=== PATIENT | male | born 1940 | race Caucasian/White ===

== ENCOUNTER 2024-06-01 01:25 | Inpatient (IN) | payer OTHER, SELFPAY ==
[2024-05-31 22:01] VITALS: BP 130/79
[2024-05-31 22:10] VITALS: BMI 44.2
[2024-05-31 22:14] VITALS: BP 105/78
--- NOTE | 2024-05-31 22:25 | ED.CVA ---
History of Present Illness
General
Chief Complaint: CVA/TIA Symptoms
Time Seen by Provider: 05/31/24 22:05
Onset of Stroke Symptoms
Onset of symptoms known: Yes
Date of onset of symptoms: 05/31/24
Date last time pt seen normal: 05/31/24
Time last time pt seen normal: 14:00
History of Present Illness
History of Present Illness:
Patient is a 84-year-old male with history of prior CVA/TIA, hypertension, hyperlipidemia, A-fib not on a blood thinner presenting to the emergency department with difficulty breathing as well as strokelike symptoms. Patient's daughter states that
his speech sounds more slurred. He was last seen normal around 2 PM. He then took a nap and when he woke up sounded like his speech was slurring. He denies any word finding difficulties. No numbness tingling. No weakness. Mild headache. No
vision changes. Daughter brought him in later this evening as he noticed he was wheezing and was breathing faster. He denies any fevers or chills. No cough congestion or runny nose. He does have history of CHF. Per patient's family member he
has been admitted for CHF exacerbation. Patient feeling member does state that at some point he was on Coumadin however he is not currently on it. His current med list does not have Xarelto alert and on either. No history of bleed that they are
aware of.
Past History
Past History
ED Past Medical History: Arrthythmia (on xarelto) and HTN
Social History
Personal:
Living: with family
Phy Exam
Physical Exam
Physical Exam:
GENERAL: Moderate respiratory distress, audible wheezing
HEENT: normocephalic, extraocular movements intact, moist oral mucosa
NECK: normal inspection
RESPIRATORY: no respiratory distress, faint crackles at the bases bilateral
CARDIOVASCULAR: regular rate and rhythm
ABDOMEN/: soft, non-distended, non-tender to palpation, no rebound or guarding
EXTREMITIES: non-tender, 2+ pitting edema bilaterally
NEUROLOGIC: alert and oriented x 3, no facial droop, slurred speech, no word finding difficulty, right upper extremity strength 5/5, left upper extremity strength 5/5, right lower extremity strength 5/5, left lower extremity strength 5/5, normal
sensation to light touch, normal caavov-iv-pkkf and qnbi-we-ukvk, gait not tested formally. NIH 1
SKIN: warm
Course
Orders/Labs/Results
Orders:
Orders
05/31/24 22:09
EKG [Electrocardiogram (*1)] Urgent
Reason for Study: Shortness of Breath
EKG- Treatment ONCE
05/31/24 22:[address] [CT Head W/o Iv Contrast] Urgent
Comment:
Reason For Exam: slurred speech
CXR2 [CR Chest - 2 Views ] Urgent
Comment:
Reason For Exam: short of breath
05/31/24 22:[address] [CT Chest Pe Study] Urgent
Comment:
Reason For Exam: short of breath
05/31/24 22:22
Ipratropium/Albuterol Sulfate [Duoneb] 3 ml INH R NOW ONE
05/31/24 22:23
Complete Blood Count/With Diff Urgent
Comprehensive Metabolic Panel Urgent
NT-proBNP Urgent
PT/INR [Prothrombin Time] Urgent
Troponin I Urgent
05/31/24 23:44
Furosemide [Lasix] 40 mg IV NOW STA
Abnormal Lab Results
05/31/24
22:23
WBC 13.3 H 10^3/uL
(4.8-10.8)
RBC 4.58 L 10^6/uL
(4.70-6.10)
Hgb 12.3 L g/dL
(13.0-18.0)
MCH 26.9 L pg
(27.0-31.0)
MCHC 31.4 L g/dL
(33.0-37.0)
RDW 17.2 H %
(11.5-14.5)
Abs Immat Gran (auto) 0.1 H 10^3/uL
(0-0.05)
Absolute Neuts (auto) 9.3 H 10^3/uL
(1.4-6.5)
Absolute Monos (auto) 0.9 H 10^3/uL
(0.1-0.6)
Immature Gran % 0.9 H %
(0-0.5)
PT 15.0 H Sec
(11.4-14.6)
Sodium 152 H mmol/L
(135-145)
Chloride 114 H mmol/L
(98-107)
BUN 22 H mg/dl
(9-20)
Glucose 116 H mg/dl
(70-99)
05/31/24 22:23
05/31/24 22:23
Vital Signs
Initial and Last Documented VS:
Initial Vital Signs
Temp Pulse Resp BP Pulse Ox
98.3 F 93 20 130/79 94
05/31/24 22:01 05/31/24 22:01 05/31/24 22:01 05/31/24 22:01 05/31/24 22:01
Last Documented Vital Signs
Temp Pulse Resp BP Pulse Ox
98.3 F 90 18 127/77 95
05/31/24 22:01 05/31/24 23:30 05/31/24 23:30 05/31/24 23:30 05/31/24 23:30
MDM/Problems Addressed
Differential Diagnosis Includes:
Patient is a 84-year-old male with history of prior CVA/TIA, CHF, A-fib not on anticoagulation, hypertension, hyperlipidemia presenting to the emergency department with slurred speech as well as difficulty breathing. Vitals here notable for oxygen
saturation in the mid 80s. Exam does show manage in moderate respiratory distress with audible wheezing and faint crackles at the bases. He does have 2+ pitting edema. He currently has some slurring of his speech but otherwise no other
neurodeficits. Concern for CVA with the slurred speech. Difficulty breathing could be secondary to CHF exacerbation versus PE given that he is not on any blood thinners. Could also be pneumonia. Will check blood work EKG. Will obtain CT scan of
the head. Will obtain CT PE. Given patient's hypoxia and work of breathing is medically necessary for the CT PE study and will proceed without obtaining creatinine. Patient will need admission.
*Critical Care Note
Total Time (30-74mins, 75-104mins- exclusive of procedures): Not Applicable
Update Note
Update Note:
On reevaluation patient resting comfortably. His work of breathing has drastically improved after the DuoNeb. He does have some crackles. CT scan of the head negative. CT PE negative. Does look like he has pulmonary edema. His BNP is elevated.
Will give him Lasix. His sodium is also elevated. Patient will be admitted for further workup.
ED Attending Note
-
Portions of this chart may have been created with voice recognition software.� Occasional wrong word or��sound alike� substitutions may have occurred due to the inherent limitations of voice recognition software.
Discharge Plan
Departure
Patient Disposition: Admit
Date of Disposition: 05/31/24
Time of Disposition: 23:45
Presentation/result/management discussed w/ accepting MD/DO: Hospitalist
Discharge Problem:
Acute CVA (cerebrovascular accident), Acute exacerbation of CHF (congestive heart failure)
Prescriptions:
No Action
losartan 50 MG tablet
100 mg PO BID
rosuvastatin 10 MG tablet
10 mg PO QPM
furosemide 40 mg Tablet
40 mg PO DAILY
amlodipine 5 mg Tablet
5 mg PO DAILY
levothyroxine 75 mcg Tablet
75 mcg PO DAILY
tamsulosin 0.4 mg Capsule
0.8 mg PO HS
sertraline 25 mg Tablet
25 mg PO DAILY
aspirin 81 mg Tablet
81 mg PO DAILY
metoprolol succinate 25 mg Tablet Extended Release 24 Hr
25 mg PO DAILY
Fish Oil 1,000 mg Capsule
1 cap PO DAILY
cholecalciferol (vitamin D3) 50 mcg (2,000 unit) Tablet
50 mcg PO DAILY
dapagliflozin propanediol [Farxiga] 10 mg Tablet
10 mg PO DAILY
Referrals:
Darwin Lira DO [Family Provider] -
Interventions
Interventions:
*Risk Screen - Suicide Last Done: 05/31/24 22:49
*General Assessment Last Done: 05/31/24 22:01
*Neglect/Abuse Screening Last Done: 05/31/24 22:49
*ED COVID-19 Vaccine History Last Done: 05/31/24 22:45
ED- Pulmonary Assessment Last Done: 05/31/24 22:25
ED- Neurological Assessment Last Done: 05/31/24 22:25
ED- Cardiac Assessment Last Done: 05/31/24 22:25
ED Swallowing Screen Last Done: 05/31/24 23:00
Discharge Date and Time
Print Language: LAO
[2024-05-31 22:35] LABS: % Basophils 0.4 % (0-2); % Eosinophils 1.2 % (0-6); % Immature Granulocytes 0.9 % (0-0.5); % Monocytes 6.6 % (1.7-9.3); % Neutrophils 69.9 % (42.2-75.2); Absolute Basophils 0.1 10^3/uL (0-0.2); Absolute Eosinophils 0.2 10^3/uL (0-0.7); Absolute Immature Granulocytes 0.1 10^3/uL (0-0.05); Absolute Lymphocytes 2.8 10^3/uL (1.2-3.4); Absolute Monocytes 0.9 10^3/uL (0.1-0.6); Absolute Neutrophils 9.3 10^3/uL (1.4-6.5); Hematocrit 39.2 % (39.0-52.0); Hemoglobin 12.3 g/dL (13.0-18.0); Mean Corp Hgb Conc. 31.4 g/dL (33.0-37.0); Mean Corpuscular Hgb 26.9 pg (27.0-31.0); Mean Corpuscular Volume 85.6 fL (80.0-94.0); Mean Platelet Volume 10.3 fL (7.4-10.4); Nucleated Red Blood Cells % 0 % (-); Platelet Count 294 10^3/uL (130-400); Red Blood Cell Count 4.58 10^6/uL (4.70-6.10); Red Cell Dist. Width 17.2 % (11.5-14.5); White Blood Cell Count 13.3 10^3/uL (4.8-10.8)
[2024-05-31] MEDS: DUONEB 3 ML INH (22:47)
[2024-05-31 22:48] VITALS: BP 113/74
[2024-05-31 22:48] LABS: INR 1.19
[2024-05-31 23:00] VITALS: BP 111/77
[2024-05-31 23:02] LABS: ALT (SGPT) 25 U/L (0-50); AST (SGOT) 25 U/L (17-59); Albumin 4.2 g/dl (3.5-5.0); Alkaline Phosphatase 63 U/L (38-126); Blood Urea Nitrogen 22 mg/dl (9-20); Calcium 9.2 mg/dl (8.4-10.2); Carbon Dioxide 25 mmol/L (22-30); Chloride 114 mmol/L (98-107); Estimated Creatinine Clearance 59 ml/min; Glucose 116 mg/dl (70-99); Potassium 4.3 mmol/L (3.5-5.1); Sodium 152 mmol/L (135-145); Total Bilirubin 0.6 mg/dl (0.2-1.3); Total Protein 6.4 g/dl (6.3-8.2); eGFR 53.84
[2024-05-31 23:15] LABS: NT-proBNP 5500 pg/ml; Troponin I < 0.012 ng/ml
[2024-05-31 23:30] VITALS: BP 127/77
[2024-05-31] MEDS: LASIX 40 MG IV (23:53)
[2024-06-01] VITALS (12 sets, daily range): BP systolic 113–154; BP diastolic 75–96; PULSE 88–102; O2SAT 96–97; BMI 43.0
--- NOTE | 2024-06-01 01:33 | HPS.HSE ---
Family Physician
-
Family Physician: Darwin Lira
Chief Complaint
-
Slurred speech, shortness of breath
History of Present Illness
This is an 84-year-old male who has a past medical history significant for atrial fibrillation status post Watchman procedure, hypothyroidism, hypertension, CHF, prior CVA, BPH who presents to the emergency department from home after noticing to
have had a slurred speech.
Patient was in usual state of health except for worsening shortness of breath up until found to have slurred speech. He was last seen normal at around 2 PM. Apparently took a nap and woke up sounding like he had slurred speech. He patient
endorses that a speech still appears slurred. He denies any weakness. He reports chronic numbness of the left hand with which is secondary to her hand surgery. Denies any vision changes. He denied any nausea or vomiting. He denied having any
chest pain. Patient reports that the he has been having increasing dyspnea on exertion over the last 1 to 2 weeks. Daughter reported that he was wheezing and had increasing work of breathing at home. He had no cough congestion fevers or chills.
He endorses noticing increasing lower extremity edema. He is unable to tell me with eyes without change significantly.
The patient had been on diuretics and is followed by Dr. Sim. Is medications indicated that torsemide was discontinued in January. He appears to be currently on Lasix 40 mg daily. He reports dietary noncompliance. He denies smoking tobacco. He
denies any prior history of asthma or COPD.
On arrival in the emergency department the patient was normotensive with a blood pressure of 140/96 pulse was 111 and irregular he was breathing at a rate of 20. He was satting at 95% on 2 L. His ECG shows atrial fibrillation with rate of 91 and a
left bundle branch block which was not present in 2015. His troponin was 0.012. BNP was 5500. He had a white count of 13,000 with otherwise unremarkable hemoglobin and platelet counts. 6 serum sodium was 152 and the rest of the electrolytes were
unremarkable. Creatinine was 1.5.
Patient had chest imaging with a CT PE which showed no pulmonary embolism, there was small bilateral pleural effusions. He did have aneurysmal dilation of the ascending aorta at 4.6 to 4.7 cm.
Medical History
Past Medical History
Past Medical History: Reports Arrhythmia (Atrial fibrillation status post watchman), CHF, CVA, HTN, Hypercholesterolemia, Hypothyroidism and Other
Past Surgical History: Reports None
Social History
Tobacco: Non-smoker
Alcohol: None
Drug: None
Personal: Single
Living: With Family
Employment: Retired
Family History
Family History: Not pertinent
Allergies / Home Medications
Allergies reflects when Allergies were last updated in [employer].
Home Medications with original date entered in [employer]
Allergy/Medication List:
Allergies
Allergy/AdvReac Type Severity Reaction Status Date / Time
No Known Allergies Allergy Verified 05/31/24 22:01
Home Medications
losartan 50 mg tablet 100 mg PO BID 09/21/14
rosuvastatin 10 mg tablet 10 mg PO QPM 09/21/14
amlodipine 5 mg tablet 5 mg PO DAILY 05/31/24
aspirin 81 mg tablet 81 mg PO DAILY 05/31/24
cholecalciferol (vitamin D3) 50 mcg (2,000 unit) tablet 50 mcg PO DAILY 05/31/24
dapagliflozin propanediol 10 mg tablet (Farxiga) 10 mg PO DAILY 05/31/24
furosemide 40 mg tablet 40 mg PO DAILY 05/31/24
levothyroxine 75 mcg tablet 75 mcg PO DAILY 05/31/24
metoprolol succinate 25 mg tablet,extended release 24 hr 25 mg PO DAILY 05/31/24
omega-3 fatty acids-vitamin E 1,000 mg capsule 1 cap PO DAILY 05/31/24
sertraline 25 mg tablet 25 mg PO DAILY 05/31/24
tamsulosin 0.4 mg capsule 0.8 mg PO HS 05/31/24
Review of Systems
-
History Source: Patient
Constitutional: Reports No Symptoms
EENT: Reports No Symptoms
Respiratory: Reports Trouble Breathing
Cardiac: Reports No Symptoms
Abdomen/GI: Reports No Symptoms
: Reports No Symptoms
Musculoskeletal: Reports No Symptoms
Skin: Reports No Symptoms
Neurological: Reports Other (slurred speech)
Endocrine: Reports No Symptoms
Hematologic/Lymphatic: Reports No Symptoms
Psych: Reports No Symptoms
Physical Exam
Vital Signs
Vital Signs
Temp Pulse Resp BP Pulse Ox
98.3 F 111 22 121/82 95
05/31/24 22:01 06/01/24 01:15 06/01/24 01:15 06/01/24 01:00 06/01/24 00:30
Physical Exam
General: Well Developed, Well Nourished, Respiratory Distress and Obese
HEENT: NormoCephalic, Anicteric, Moist mucous membranes, PERRLA and Oxygen
Respiratory: Wheezes and Crackles
Cardiac: S1/S2 and Irregular Rhythm
Breast: Deferred by me
GI: Soft, Non Tender and Normal Bowel Sounds
Rectal: Deferred by Provider
Genito-urinary: Deferred by me
Musculoskeletal: No Clubbing, No Cyanosis, Edema, Left Lower Extremity and Edema, Right Lower Extremity
Skin: Warm
Neuro: AO x 3, No Motor Deficits, Cranial Nerves Intact, No Sensory Deficits and Slurred Speech
Hematologic/Lymphatic: No Lymphadenopathy
Psych: Calm
Laboratory Results
-
05/31/24 22:23
05/31/24 22:23
Laboratory Results
PT 15.0 Sec (11.4-14.6) H 05/31/24 22:23
INR 1.19 05/31/24 22:23
Total Bilirubin 0.6 mg/dl (0.2-1.3) 05/31/24 22:23
AST 25 U/L (17-59) 05/31/24 22:23
ALT 25 U/L (0-50) 05/31/24 22:23
Alkaline Phosphatase 63 U/L (38-126) 05/31/24 22:23
Troponin I < 0.012 ng/ml 05/31/24 22:23
Data Reviewed
-
Diagnostic Radiology: Image Personally Visualized and interpreted
CT Scan: Report Reviewed by me
Medical Tests (Nuc Med, Echo, EKG etc): Image Personally Visualized and interpreted
Lab Data: Labs Reviewed by me
Old Records: Reviewed
Impression/Plan
-
IMPRESSION:
54-year-old male with past with prior history of CVA, atrial fibrillation status post watchman off of anticoagulation, hypertension, hyperlipidemia obesity who presents to the emergency department with episode of slurred speech without any other
focal neurological deficits as well as worsening dyspnea on exertion, lower extremity edema, and acute worsening of shortness of breath today. Picture is concerning for TIA/CVA as well as CHF exacerbation.
PLAN:
1. TIA/CVA -persistent slurred speech slightly improved. No other focal neurological deficits. Patient is not on any anticoagulation but is status post watchman. He has a prior history of CVA and is on aspirin. Not a candidate for tPA due to
unknown anticoagulation status at the time as well as out of window
- admit to telemetry
- continue aspirin statin (age appropriate dosing for CVA)
- neurology consult
- mri in am
- speech and swallow
- PtOT
2. CHF exacerbation -weight gain, peripheral edema, elevated BNP, worsening dyspnea on exertion and shortness of breath, mild wheezing and crackles on exam all consistent with volume overload secondary to dietary indiscretion. Patient has no chest
pain. However cannot eliminate contrition of ischemia given dyspnea on exertion. New LBBB on ECG compared to 2015. Denies h/o CAD. No known prior cath. Follows with Dr. Nabil Sim (capacity management specialist)
- lasix 40mg iv q 12
- daily weights and i/os
- echo in am
- continue metoprolol, losartan, farxiga
- records from outpatient cardiology in am
- check tsh
- cardiology consulted
3. AFIB - permanent afib s/p watchman. Rate is slightly elevated at 110
- diuresis, continue metoprolol
4. BPH
- tamsulosin
DVT PPX - lovenox
Code status - Full code, does not want prolonged life support and will discuss code status further with daughter.
[2024-06-01] MEDS: SYNTHROID 75 MCG PO (04:55)
[2024-06-01 06:42] LABS: Hemoglobin 12.2 g/dL (13.0-18.0); Mean Corp Hgb Conc. 31.3 g/dL (33.0-37.0); Mean Corpuscular Volume 86.3 fL (80.0-94.0); Mean Platelet Volume 10.4 fL (7.4-10.4); Platelet Count 295 10^3/uL (130-400); Red Blood Cell Count 4.52 10^6/uL (4.70-6.10); Red Cell Dist. Width 17.3 % (11.5-14.5); White Blood Cell Count 12.8 10^3/uL (4.8-10.8)
[2024-06-01 07:04] LABS: Troponin I 0.012 ng/ml
[2024-06-01 07:12] LABS: HDL Cholesterol 40 mg/dl; LDL Cholesterol, Calculated 27 mg/dl; Total Cholesterol 81 mg/dl (50-199); Triglyceride 70 mg/dl (10-149); Very Low Density Lipoprotein 14 mg/dl (0-30)
[2024-06-01 07:41] LABS: TSH 1.36 uIU/ml (0.47-4.68)
[2024-06-01] MEDS: ASPIR LOW (ENTERIC COATED) 81 MG PO (08:14)
[2024-06-01] MEDS: NORVASC 5 MG PO (08:14)
[2024-06-01] MEDS: VITAMIN D3 (cholecalciferol) 50 MCG PO (08:14)
[2024-06-01] MEDS: FARXIGA 10 MG PO (08:14)
[2024-06-01] MEDS: DESENEX/MITRAZOL/ZEASORB 1 APPLIC TOPICAL ×2 (08:15→21:49)
[2024-06-01] MEDS: ZOLOFT 25 MG PO (08:15)
[2024-06-01] MEDS: TOPROL XL 25 MG PO ×2 (08:15→11:15)
[2024-06-01] MEDS: LASIX 40 MG IV ×2 (08:15→16:05)
--- NOTE | 2024-06-01 08:25 | CON.CAR ---
Addendum entered and electronically signed by Jeff Lu MD 06/01/24 11:54:
I saw and examined the patient.
The MAT MAN's note was reviewed and I agree with the note.
Comment: 84 y/o male with history of stroke, permanent AFIB with watchman in place (hx GIB), HTN, HLD, HFrEF, NICM EF 30-35%, hypothyroidism, COLLIN on CPAP, LBBB, CKD3, severe MR, moderate TR, and obesity who is here for evaluation of SOB and slurred
speech noted by family. He is admitted for CHF exacerbation, as well as evaluation for stroke. He is diuresing well.
- Cont IV lasix
- Evaluate cost of Entresto
- Increase metop
Original Note:
Consultation
Consultation Request
Date/Time Consultation Requested: 06/01/24 0200
Date/Time Consultation Performed: 06/01/24 0815
Requesting Provider: Dr. [place]
Performing Provider: Ivonne JOHNSON for Dr. Lu
Reason for Consultation: CHF
Medical History
-
Chief Complaint: slurred speech, SOB
History of Present Illness:
84 y/o male with history of stroke, permanent AFIB with watchman in place (hx GIB), HTN, HLD, HFrEF, NICM EF 30-35%, hypothyroidism, COLLIN on CPAP, LBBB, CKD3, severe MR, moderate TR, and obesity who is here for evaluation of SOB and slurred speech
noted by family. He is admitted for CHF exacerbation, as well as evaluation for stroke. He is in no distress at the time of my assessment. He is on O2 by [place]. He is diuresing with IV Lasix. He is a patient of Dr. Sim. He denies any CP or
palpitations.
Past Medical History
Past Medical History: Arrhythmias, CHF, HTN, Hypercholesterolemia, Hypothyroidism, Valvular Disease and Other (as above)
Social History
Tobacco: Non-Smoker
Alcohol: Occasional
Personal:
Family History
Family History: Reviewed & Not Pertinent
Allergies / Home Medications
Allergy/AdvReac Type Severity Reaction Status Date / Time
No Known Allergies Allergy Verified 05/31/24 22:01
�Medication �Instructions �Recorded �Confirmed �Type
losartan 50 mg tablet 100 mg PO BID 09/21/14 05/31/24 History
rosuvastatin 10 mg tablet 10 mg PO QPM 09/21/14 05/31/24 History
amlodipine 5 mg tablet 5 mg PO DAILY 05/31/24 05/31/24 History
aspirin 81 mg tablet 81 mg PO DAILY 05/31/24 05/31/24 History
cholecalciferol (vitamin D3) 50 50 mcg PO DAILY 05/31/24 05/31/24 History
mcg (2,000 unit) tablet
dapagliflozin propanediol 10 mg 10 mg PO DAILY 05/31/24 05/31/24 History
tablet (Farxiga)
furosemide 40 mg tablet 40 mg PO DAILY 05/31/24 05/31/24 History
levothyroxine 75 mcg tablet 75 mcg PO DAILY 05/31/24 05/31/24 History
metoprolol succinate 25 mg 25 mg PO DAILY 05/31/24 05/31/24 History
tablet,extended release 24 hr
omega-3 fatty acids-vitamin E 1 cap PO DAILY 05/31/24 05/31/24 History
1,000 mg capsule
sertraline 25 mg tablet 25 mg PO DAILY 05/31/24 05/31/24 History
tamsulosin 0.4 mg capsule 0.8 mg PO HS 05/31/24 05/31/24 History
Review of Systems
-
History Source: Patient and Other (and chart)
Respiratory: Trouble Breathing
Musculoskeletal: Edema
Neurological: Other (slurred speech)
Physical Exam
Vital Signs
Temp Pulse Resp BP Pulse Ox
97.3 F 102 20 154/95 97
06/01/24 08:01 06/01/24 08:01 06/01/24 08:01 06/01/24 08:01 06/01/24 08:01
Lab Results
06/01/24 04:52
05/31/24 22:23
Troponin I 0.012 ng/ml 06/01/24 04:52
Hhx-X-Urgbrmigoyt Pept 5500 pg/ml 05/31/24 22:23
Physical Exam
General: Well Developed, Well Nourished and No Apparent Distress
HEENT: Normocephalic and Anicteric
Respiratory: Other (diminished b/l bases, on O2 by [place])
Cardiac: Irregular Rhythm
Musculoskeletal: Edema (+2 BLE edema)
Skin: Warm and Dry
Neuro: Awake, Alert and Oriented
Psych: Calm
Impression / Plan
-
Slurred speech:
-patient still feels that his speech is not baseline
-head CT without acute abnormality
-MRI is ordered
-neuro consult pending
-on ASA, statin
[id number]-[id number] HF: type unknown
-BNP elevated, CT scan and CXR as noted. Lungs diminished to bases, +2 BLE edema noted. Reports he is diuresing with current lasix dosing.
-echo today
-agree with IV diuresis, which requires intensive monitoring- repeat renal profile today s/p IV lasix
-CHF education
-on Farxiga, ARB, BB
AFIB, type unknown, but suspect permanent:
-continue metoprolol, will increase dose for better rate control
-per report history of watchman
LBBB: unclear chronicity
-request records, follow telemetry
HTN:
-BP elevated at times
-monitor with diuresis and increase in BB
-of note, med rec reports he is on losartan 100 mg PO BID, which is higher than max dose. This was appropriately changed to once daily- continue and monitor.
-on CCB
Ascending aortic aneurysm 4.6-4.7 cm:
-needs to follow-up as OP on this with his physician
-BP and HR control
-increasing BB
Will work to obtain records from Dr. Sim
Data Reviewed
-
EKG: Tracing Personally Visualized and interpreted (AFIB, LBBB)
Radiology: Report Reviewed by me (Cardiomegaly with small bilateral pleural effusions and mild interstitial edema.)
CT Scan: Report Reviewed by me (No findings to suggest central pulmonary embolism. Cardiomegaly. Aneurysmal dilatation of the ascending thoracic aorta at 4.6-4.7 cm. Small bilateral pleural effusions and accompanying bibasilar subsegmental
atelectasis. Cholelithiasis.)
Medical Tests (Nuc Med, Echo etc): Other (echo ordered and pending)
Labs: Labs Reviewed by me
Old Records: Requested
--- NOTE | 2024-06-01 08:39 | W.PN.HOSP.TC ---
Addendum entered and electronically signed by Alfred Mccain MD 06/01/24 14:35:
I personally performed a history and physical exam of the patient and discussed management with the resident. I reviewed the resident's note and agree with the documented findings and plan of care HPI/CC except for changes in my documentation
Addendum entered and electronically signed by Alfred Mccain MD 06/01/24 14:33:
84-year-old male who is seen at [place] normally comes here because he does not like [facility]. According to patient's son who was at bedside he had some slurred speech but he is not sure if it is because he does not have his dentures. He
was short of breath. Patient does not use CPAP at home. He does not check his weight at home. He was having difficulty breathing also at home.
On examination awake alert
Seated in a chair
Cardiovascular system S1-S2 appreciated
Chest bilateral rales
Abdominal soft and nontender
Bilateral pedal edema
Neuro exam-no facial droop noted-mostly nonfocal
CT of the chest-no PE. Cardiomegaly. Aneurysmal dilatation of the ascending aorta 4.6 into 4.7 cm. Small bilateral pleural effusions with subsegmental atelectasis. Cholelithiasis.
# Acute on chronic heart failure type unknown
Check echo
IV diuretics with monitoring
CHF education
Continue beta-blockers, ARB, Farxiga
Clemente bandages for lower extremity
Cardiology consulted
# Slurry speech-head CT without any acute changes.
MRI ordered
Neuro consult pending
Continue aspirin and statin
# Atrial fibrillation-type unknown-likely permanent
Continue metoprolol dose increased
Patient has a history of watchman placement
# Hypernatremia-need to watch with diuresis
# Left bundle branch block
# Hypertension-continue beta-blockers, losartan
# Hyperlipidemia-continue statin
# Depression-continue sertraline
# Prostate disease-continue Flomax
# Hypothyroidism-continue Synthroid
# Cholelithiasis
# Ascending aortic aneurysm 4.6 to 4.7 cm-outpatient follow-up
# Morbid obesity with a BMI of 43-needs weight loss
# Sleep apnea-noncompliant with CPAP-I discussed the importance of continuing with CPAP
# DVT prophylaxis-Lovenox
D/W Son at bed side
Original Note:
Today's Communication/Plan
-
.
Assessment / Plan
Assessment / Plan
Assessment
TIA/CVA
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
Permanent atrial fibrillation s/p Watchman device
BPH
Ascending aortic aneurysm 4.6-4.7 cm
Conditions present prior to admission
Hypercholesterolemia
Hypertension
Hypothyroidism
Prior CVA
Plan
#TIA/CVA
-Continue aspirin plus statin
-Neurology consulted, pending evaluation
-Speech eval
-PT OT
-Head CT unremarkable.
-MRI pending.
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
-EKG on presentation with new LBBB
-Volume overload on physical examination
-Lasix 40 mg IV twice daily
-Monitor Cre with diuresis
-Daily weights, I's and O's
-Echo pending
-Cardiology input appreciated.
-Continue metoprolol, losartan, Farxiga
-Wean O2 as tolerated, Not on Home oxygen
#Permanent atrial fibrillation status post Watchman device
-Continue metoprolol for rate control.
-Hx of Watchman 2020.
#BPH
-Continue tamsulosin
#HTN
Continue Home medications CCB, ARB, BB.
#Ascending aortic aneurysm 4.6-4.7 cm:
-Outpatient evaluation
Anticipated Discharge: 24 - 48 hours
Subjective/Interval History
-
Patient examined at bedside. Reports shortness of breath is improved. He denies chest pain, denies palpitation. Awake alert oriented to time place and person.
Objective Data
-
Labs:
Laboratory Results
05/31/24 06/01/24
22:23 04:52
WBC 13.3 H 12.8 H
Hgb 12.3 L 12.2 L
Hct 39.2 39.0
Plt Count 294 295
PT 15.0 H
INR 1.19
Sodium 152 H
Potassium 4.3
Chloride 114 H
Carbon Dioxide 25
BUN 22 H
Creatinine 1.3
Glucose 116 H
Calcium 9.2
Total Bilirubin 0.6
AST 25
ALT 25
Alkaline Phosphatase 63
Vital Signs:
Vital Signs
Temp Pulse Resp BP Pulse Ox
97.3 F 102 20 154/95 97
06/01/24 08:01 06/01/24 08:01 06/01/24 08:01 06/01/24 08:01 06/01/24 08:01
I&O
05/31/24 06/01/24 06/02/24
06:59 06:59 06:59
Intake Total 240 / 240
Output Total 2019
Balance -1780 / -1780
Review of Systems
-
All other systems: Reviewed and negative (excepted as documented. )
Physical Exam
-
General: No Apparent Distress
Respiratory: Wheezes and Crackles (b/l)
Cardiac: S1/S2 and Irregular Rhythm
GI: Soft, Nontender and Normal Bowel Sounds
Musculoskeletal: Other (2+ bl lower extremity edema.)
Neuro: Awake, Alert, Oriented and AO x 3
Psych: Calm
--- NOTE | 2024-06-01 09:00 | PTOTSP ---
Speech Language Pathology
Pt seen for clinical bedside swallow evaluation. Pt stated he has dentures, which he does not use at home for eating. He only wears these in public. RN reported she provided multiple meds whole with liquid, and pt took these without difficulty.
P.O. trials of regular solids and thin liquids provided. Slightly prolonged mastication secondary to edentulous status, but this was functional. No overt signs of aspiration.
Pt endorsed speech sounding different. However, pt was 100% intelligible in conversation. He had mentioned to OT that he feels like he sounds like he has a cold. Question whether pt noting hoarse voice, not actual dysarthria. Will consider
speech/language evaluations pending further workup.
Recommend:
(1) Regular solids/thin liquids
(2) General aspiration precautions
(3) Meds as tolerated
(4) Further dysphagia services not indicated. ACCOUNTING MANAGER ASSISTANT CONTROLLER to consider speech/language evaluation as appropriate pending workup
[2024-06-01 10:03] LABS: Blood Urea Nitrogen 21 mg/dl (9-20); Carbon Dioxide 26 mmol/L (22-30); Chloride 110 mmol/L (98-107); Estimated Creatinine Clearance 58 ml/min; Glucose 101 mg/dl (70-99); Sodium 149 mmol/L (135-145); eGFR 53.84
--- NOTE | 2024-06-01 14:42 | CM ---
Addendum entered by Jacki Castro 06/01/24 15:37:
Received CM consult for medication pricing of Entresto
Called [facility] - spoke with Lynsey
Cost of 30 day supply at local pharm - $141
Cost of 90 day supply at mail order pharm [facility] - $94
Pts physician updated via TT
Original Note:
Met with pt and his son at bedside
Pt/son report pt lives with his son and daughter in a ranch style home; 5 steps to enter through garage - has chair lift
Daughter is primary care process manager. Needs assist with adl's, ambulates with Rollator
DME - rollator, CPAP(refuses to use), chair lift
SNF - denies past hx
HH - Has had in past, unsure of agency
Has ride home at discharge
PCP - Darwin Waite
Pharm - [facility]
PT recs - HH - discussed with pt/son - agreeable and have no preference
Will send referral in Care Port
Plan - anticipate home with HH when medically ready
--- NOTE | 2024-06-01 15:26 | PTCARENOTE ---
taiwo bandages applied to B/L LE. Dorsalis pedis pulses present in B/L LE. Capillary refill <2 seconds. Care ongoing at this time.
--- NOTE | 2024-06-01 16:13 | VNURNOTE ---
Received message from that patient seems forgetful. Home Health Liaison spoke with patient's son Tej to discuss [facility] nurse/therapy, visits, schedule and homebound status. Son is agreeable and understands that visits at home will be 2-3 x per
week to assess and teach medical management. [facility] contact information texted to son per his request. He is aware that [facility] will contact them for start of care in 1-2 days after discharge from . [facility] referral completed in Care Port.
[2024-06-01] MEDS: CRESTOR 10 MG PO (17:05)
[2024-06-01] MEDS: LOVENOX 40 MG SC (21:48)
[2024-06-01] MEDS: COZAAR 100 MG PO (21:48)
[2024-06-01] MEDS: FLOMAX 0.8 MG PO (21:49)
[2024-06-02 03:54] VITALS: BP 111/64
[2024-06-02] MEDS: SYNTHROID 75 MCG PO (05:39)
[2024-06-02 07:00] VITALS: BP 109/73
[2024-06-02 07:04] LABS: Blood Urea Nitrogen 24 mg/dl (9-20); Calcium 8.5 mg/dl (8.4-10.2); Carbon Dioxide 29 mmol/L (22-30); Chloride 105 mmol/L (98-107); Estimated Creatinine Clearance 54 ml/min; Glucose 86 mg/dl (70-99); Magnesium 2.1 mg/dl (1.6-2.3); Sodium 148 mmol/L (135-145); eGFR 49.25
--- NOTE | 2024-06-02 07:46 | W.PN.HOSP.TC ---
Addendum entered and electronically signed by Alfred Mccain MD 06/02/24 17:00:
I personally performed a history and physical exam of the patient and discussed management with the resident. I reviewed the resident's note and agree with the documented findings and plan of care HPI/CC .
Seen earlier , late documentation
CVS: S1-S2 normal
Chest: mild wheezing
Abdomen: Soft, NT / Bowel sounds present
Extremities: B/L LE edema,
CXR with no Pulm edema
ECHO pending
Start PO lasix and possible discharge soon
Original Note:
Today's Communication/Plan
-
Home O2 assessment
Chest x-ray repeat today
Echocardiogram pending
Assessment / Plan
Assessment / Plan
Assessment
Dysarthria secondary to dyspnea
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
Permanent atrial fibrillation s/p Watchman device
BPH
Ascending aortic aneurysm 4.6-4.7 cm
Hypernatremia
Conditions present prior to admission
Hypercholesterolemia
Hypertension
Hypothyroidism
Prior CVA
Plan
#Dysarthria secondary to dyspnea
-Continue aspirin plus statin
-MRI 06/02/2024 with no evidence of an acute infarct
-Head CT unremarkable.
-Neurology input appreciated
-Speech therapy
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
-EKG on presentation with new LBBB
-Initiated on Lasix 40 mg IV twice daily, transition to oral diuretic when fully off O2
-Monitor Cre with diuresis
-Weight down by 9 pounds
-Echo pending
-Cardiology input appreciated.
-Continue metoprolol, losartan, Farxiga
-Home O2 assessment
-Chest x-ray repeat today
#Permanent atrial fibrillation status post Watchman device
-Continue metoprolol for rate control.
-Hx of Watchman 2020.
# Hypernatremia
Watch with diuresis
#BPH
-Continue tamsulosin
#HTN
Continue Home medications ARB, BB.
#Ascending aortic aneurysm 4.6-4.7 cm:
-Outpatient evaluation
CODE STATUS; full code
DVT prophylaxis-Lovenox
Anticipated Discharge: Within 24 hours
Subjective/Interval History
-
Patient examined at bedside. Patient off oxygen. Expiratory wheezes visible. Although denies shortness of breath, denies chest pains, denies palpitations. He reports speech is not at baseline
Objective Data
-
Labs:
Laboratory Results
06/02/24
04:47
Sodium 148 H
Potassium 4.0
Chloride 105
Carbon Dioxide 29
BUN 24 H
Creatinine 1.4 H
Glucose 86
Calcium 8.5
Vital Signs:
Vital Signs
Temp Pulse Resp BP Pulse Ox
97.4 F 83 16 111/64 99
06/01/24 23:48 06/02/24 03:54 06/02/24 03:54 06/02/24 03:54 06/02/24 03:54
I&O
06/01/24 06/02/24 06/03/24
06:59 06:59 06:59
Intake Total 240 / 240 860 / 860
Output Total 2019 3225 / 3225
Balance -1780 / -1780 -2365 / -2365
Review of Systems
-
All other systems: Reviewed and negative (Except as documented)
Physical Exam
-
Respiratory: Wheezes
Cardiac: S1/S2
GI: Soft, Nontender and Nondistended
Musculoskeletal: Other (2+ edema bilaterally)
Neuro: AO x 3
Psych: Calm
--- NOTE | 2024-06-02 08:19 | W.PN.CD ---
Today's Communication / Plan
-
patimukeshn has chronic venous stasis and changes and likeley has chronic edema.
significant diuresis over the last 48 hours.
patients mouth is quite dry .
wean O2. if able to wean to room air then transition to oral diuretic
decrease diuretic
check echo
Impression / Plan
-
Slurred speech:
-patient still feels that his speech is not baseline
-head CT without acute abnormality
- evaluation per primary team and neuro
-MRI report pending
-neuro consult pending
-on ASA, statin
Qttjq-mc-wtxmmme HF: type unknown
-BNP elevated, CT scan and CXR as noted.
-echo
- IV lasix
-on Farxiga, ARB, BB
- entresto being considered and cost being assessed
AFIB, type unknown, but suspect permanent:
-continue metoprolol, dose increased this admnit for better rate control
-per report history of watchman
LBBB: unclear chronicity
-request records, follow telemetry
HTN: - stable
-
Ascending aortic aneurysm 4.6-4.7 cm:
-needs to follow-up as OP on this with his physician
-BP and HR control
requested records from Dr. Sim
Physical Exam
Vital Signs/Labs
Vital Signs
Temp Pulse Resp BP Pulse Ox
97.6 F 87 18 109/73 99
06/02/24 07:00 06/02/24 07:00 06/02/24 07:00 06/02/24 07:00 06/02/24 07:00
06/01/24 06/02/24 06/03/24
06:59 06:59 06:59
Actual Weight 135.851 kg
06/01/24 04:52
06/02/24 04:47
PT 15.0 Sec (11.4-14.6) H 05/31/24 22:23
INR 1.19 05/31/24 22:23
Magnesium 2.1 mg/dl (1.6-2.3) 06/02/24 04:47
Triglycerides 70 mg/dl (10-149) 06/01/24 04:52
LDL Cholesterol, Calc 27 mg/dl 06/01/24 04:52
VLDL Cholesterol, Calc 14 mg/dl (0-30) 06/01/24 04:52
HDL Cholesterol 40 mg/dl 06/01/24 04:52
TSH 1.36 uIU/ml (0.47-4.68) 06/01/24 04:52
05/31/24
22:23
Hdh-W-Rweqgnzqpzt Pept 5500
LAB Results
05/31/24 06/01/24
22:23 04:52
Troponin I < 0.012 0.012
Physical Exam
Constitutional: No acute distress and Other (mouth and tongue quite dry. He feels speech is normla but difficult to assess with dry tongue and no dentures. )
EENT: Anicteric
Cardiovascular: Rhythm/rate is irregular
Respiratory: Wheeze Absent, Crackles Absent and Rhonchi Absent
GI: Soft and Non tender
Neuro/Psych: Alert
Other: Other (lower leg edema nd chronic skin change )
Data Reviewed
-
Date of Service: June 02, 2024
Medical Decision Making: Reviewed Test Results and Review of Case with other Provider (reviewed [facility] nurse)
Medical Tests (PFT, Pathology etc): Report Reviewed by me
Labs: Labs Reviewed by me
[2024-06-02] MEDS: FARXIGA 10 MG PO (08:33)
[2024-06-02] MEDS: ASPIR LOW (ENTERIC COATED) 81 MG PO (08:33)
[2024-06-02] MEDS: LOVENOX 40 MG SC ×2 (08:33→20:33)
[2024-06-02] MEDS: ZOLOFT 25 MG PO (08:33)
[2024-06-02] MEDS: DESENEX/MITRAZOL/ZEASORB 1 APPLIC TOPICAL ×2 (08:33→20:34)
[2024-06-02] MEDS: VITAMIN D3 (cholecalciferol) 50 MCG PO (08:33)
[2024-06-02] MEDS: TOPROL XL 50 MG PO (08:34)
[2024-06-02] MEDS: LASIX IV ×2 (08:34→08:36)
--- NOTE | 2024-06-02 08:54 | CON.NEURO4 ---
Consultation - Neurology 4
-
CONSULTING PHYSICIAN: Sharad Nuñez MD neurology
REFERRING PHYSICIAN: Hospitalist
DICTATED BY: Sharad Nuñez MD
DATE/TIME OF REQUEST: June 01, 2024
DATE/TIME OF CONSULTATION: June 01, 2024
Reason for Consultation: Slurred speech
History of Present Illness:
This is a 84 year old right) handed (male who has presented to the hospital with (chief complaint) of slurred speech. He gives a history of hypertension hyperlipidemia LBBB chronic atrial fibrillation(watchman device), HFrEF, nonischemic
cardiomyopathy EF 30-35%, hypothyroidism, COLLIN on CPAP, , CKD3, severe MR, moderate TR, and obesity who was admitted with SOB and slurred speech noted by family, management of congestive heart failure. Following admission he was placed on IV Lasix
and his shortness of breath is resolving. His speech has also improved. There is no weakness of the face or extremities. No double vision or tingling or numbness of the face or extremities.. No aphasia. No difficulty swallowing, incoordination
or gait impairment.
Past Medical History: As above
Surgical History: As above
Family History: Noncontributory
Social History: lives at home alone independent does not smoke occasional beer
Allergies: Allergies
Home Medications: See addendum
Review of Symptoms:
Patient denies any fever, headache, chest pain, shortness of breath, GI or symptoms.
�Per the HPI.�All systems are reviewed negative except above.
�
Vital Signs:
The patient has a Temp 97.3 F Pulse 102 Resp 20 BP154/95 Pulse Ox 97
Physical Exam:
The patient is afebrile, heart sounds S1 and S2 are (regular / irregular), and chest is clear to auscultation bilaterally.
- If not clear, describe.
NIH Stroke Scale (if applicable):
I performed the NIH stroke scale on the patient . The patient scored (0 ) points on the NIHSS:
Neurologic Examination:
The patient is awake, alert and oriented x 3. (He is able to follow commands and answer questions appropriately. There is no aphasia or dysarthria.
On cranial nerve assessment, pupils are 3 mm bilateral, round and reactive to light and accommodation. Visual stratton are full. Extraocular movements are intact. Facial sensations are intact and bilaterally symmetrical, there is no facial asymmetry.
Hearing is intact bilaterally to normal conversation volume. Tongue palate and uvula are midline. Sternocleidomastoid strengths are full bilaterally. Motor strengths are 5/5 bilateral upper and lower extremities on [employer] [place] scale.
There is no drift or involuntary movement noted. Deep tendon reflexes are + bilateral upper and lower extremities and Babinski is absent bilaterally. Sensations of pain, touch, temperature and vibration are intact and bilaterally symmetrical. There
was no extinction noted on double simultaneous stimulation. Coordination is intact by finger to nose bilaterally.
Romberg's unsteady gait assisted
Neuro Imaging: CT of the head shows atrophy small vessel disease mild ventriculomegaly
Impression:
(Mr. EBER BURTON is a 84 year old M who has presented to the hospital with (symptoms/chief complaint) of shortness of breath with associated slurred speech
Differentials for the patient's presentation include:
1. Dysarthria secondary to dyspnea
2. Vertebrobasilar insufficiency
Patient has the following risk factors for their symptoms: Chronic atrial fibrillation, hypertension diabetes
Recommendations:
1. Continue aspirin
2. Continue Crestor
3. Speech therapy
4. MRI brain
5. Cardiology management for congestive heart failure,
6. Echocardiogram
Discussed patient care with:
Allergies
-
Allergies
Allergy/AdvReac Type Severity Reaction Status Date / Time
No Known Allergies Allergy Verified 05/31/24 22:01
Vital Signs and Labs
-
Vital Signs and Labs:
Vital Signs
Temp Pulse Resp BP Pulse Ox
36.4 C 83 18 116/72 99
06/02/24 07:00 06/02/24 08:34 06/02/24 07:00 06/02/24 08:34 06/02/24 07:00
Lab Results
06/01/24 04:52
06/02/24 04:47
PT 15.0 Sec (11.4-14.6) H 05/31/24 22:23
INR 1.19 05/31/24 22:23
Sodium 148 mmol/L (135-145) H 06/02/24 04:47
Potassium 4.0 mmol/L (3.5-5.1) 06/02/24 04:47
BUN 24 mg/dl (9-20) H 06/02/24 04:47
Glucose 86 mg/dl (70-99) 06/02/24 04:47
Calcium 8.5 mg/dl (8.4-10.2) 06/02/24 04:47
Lrx-X-Ifmujfdswye Pept 5500 pg/ml 05/31/24 22:23
LDL Cholesterol, Calc 27 mg/dl 06/01/24 04:52
Medications
-
Active Medications
Generic Name Dose Route Start Last Admin
Trade Name Freq PRN Reason Stop Dose Admin
Acetaminophen 650 mg 06/01/24 02:08
Acetaminophen 650 Mg Rectal Suppository RECTAL 06/29/24 02:07
Q4HPRN PRN
MCGEE, mild pain, or temp >100.4F
Acetaminophen 650 mg 06/01/24 02:08
Acetaminophen 325 Mg Tablet PO 06/29/24 02:07
Q4HPRN PRN
MCGEE, mild pain, or temp >100.4F
Amlodipine Besylate 5 mg 06/01/24 08:00 06/01/24 08:14
Amlodipine 5 Mg Tablet PO 06/29/24 07:59 5 mg
DAILY CARLOS Administration
Aspirin 81 mg 06/01/24 08:00 06/02/24 08:33
Aspirin 81 Mg (Enteric Coated) Tablet PO 06/29/24 07:59 81 mg
DAILY CARLOS Administration
Cholecalciferol 50 mcg 06/01/24 08:00 06/02/24 08:33
Cholecalciferol (Vitamin D3) 50 Mcg Tablet (2,000 Units) PO 06/29/24 07:59 50 mcg
DAILY CARLOS Administration
Dapagliflozin 10 mg 06/01/24 08:00 06/02/24 08:33
Dapagliflozin (Farxiga) 10 Mg Tablet PO 06/29/24 07:59 10 mg
DAILY CARLOS Administration
Enoxaparin Sodium 40 mg 06/01/24 20:00 06/02/24 08:33
Enoxaparin Sodium 40 Mg/0.4 Ml Syringe SC 06/29/24 19:59 40 mg
Q12 CARLOS Administration
Levothyroxine Sodium 75 mcg 06/01/24 06:00 06/02/24 05:39
Levothyroxine 75 Mcg Tablet PO 06/29/24 05:59 75 mcg
DAILY @ 0600 CARLOS Administration
Losartan Potassium 100 mg 06/01/24 22:00 06/01/24 21:48
Losartan 100 Mg Tablet PO 06/29/24 21:59 100 mg
HS CARLOS Administration
Metoprolol Succinate 50 mg 06/02/24 08:00 06/02/24 08:34
Metoprolol 50 Mg Extended Release Tablet PO 06/30/24 07:59 50 mg
DAILY CARLOS Administration
Miconazole Nitrate 0 applic 06/01/24 08:00 06/02/24 08:33
Miconazole Powder Bottle TOPICAL 06/29/24 07:59 1 applic
BID CARLOS Administration
Rosuvastatin Calcium 10 mg 06/01/24 18:00 06/01/24 17:05
Rosuvastatin (Crestor) 10 Mg Tablet PO 06/29/24 17:59 10 mg
QPM CARLOS Administration
Sertraline HCl 25 mg 06/01/24 08:00 06/02/24 08:33
Sertraline 25 Mg Tablet PO 06/29/24 07:59 25 mg
DAILY CARLOS Administration
Sodium Chloride 0 flush 06/01/24 01:00
Sodium Chloride 0.9% (Flush) Syringe IV 06/29/24 00:59
PER PROTOCOL CARLOS
Tamsulosin HCl 0.8 mg 06/01/24 22:00 06/01/24 21:49
Tamsulosin 0.4 Mg Capsule PO 06/29/24 21:59 0.8 mg
HS CARLOS Administration
Home Medications
�Medication �Instructions �Recorded
losartan 50 mg tablet 100 mg PO BID Blood Pressure 09/21/14
rosuvastatin 10 mg tablet 10 mg PO QPM High Cholesterol 09/21/14
amlodipine 5 mg tablet 5 mg PO DAILY Blood Pressure 05/31/24
aspirin 81 mg tablet 81 mg PO DAILY Blood Clot 05/31/24
Prevention/Tx
cholecalciferol (vitamin D3) 50 50 mcg PO DAILY Supplement 05/31/24
mcg (2,000 unit) tablet
dapagliflozin propanediol 10 mg 10 mg PO DAILY Diabetes 05/31/24
tablet (Farxiga)
furosemide 40 mg tablet 40 mg PO DAILY Fluid 05/31/24
Retention/Swelling
levothyroxine 75 mcg tablet 75 mcg PO DAILY Thyroid 05/31/24
metoprolol succinate 25 mg 25 mg PO DAILY Heart 05/31/24
tablet,extended release 24 hr Disease/Condition
omega-3 fatty acids-vitamin E 1 cap PO DAILY Supplement 05/31/24
1,000 mg capsule
sertraline 25 mg tablet 25 mg PO DAILY Mental 05/31/24
Health/Anxiety
tamsulosin 0.4 mg capsule 0.8 mg PO HS Urinary Issue 05/31/24
[2024-06-02 11:00] VITALS: BP 118/66
[2024-06-02 12:07] VITALS: BMI 41.7
--- NOTE | 2024-06-02 12:23 | CM ---
Patient had home 02 assessment today.
Per respiratory does not qualify for home 02.
[facility] accepted patient.
IMM explained & signed
PLAN: Discharge when stable with [facility].
Family to transport.
[2024-06-02 15:00] VITALS: BP 112/61
[2024-06-02] MEDS: CRESTOR 10 MG PO (17:03)
[2024-06-02 19:02] VITALS: BP 103/82
[2024-06-02] MEDS: COZAAR 100 MG PO (20:33)
[2024-06-02] MEDS: FLOMAX 0.8 MG PO (20:34)
[2024-06-02 23:34] VITALS: BP 123/79
[2024-06-03] VITALS (10 sets, daily range): BP systolic 92–132; BP diastolic 59–76; PULSE 71–111; O2SAT 95; BMI 41.5
[2024-06-03] MEDS: SYNTHROID 75 MCG PO (05:34)
--- NOTE | 2024-06-03 08:41 | CM ---
Appears to have weaned to room air as per VS.
PT OT eval = Vn
As per care port [facility] accepted pt.
Family to transport home at dc.
Dgt is child care giver.
PLAN Home with [facility]
--- NOTE | 2024-06-03 08:50 | W.PN.HOSP.TC ---
Today's Communication/Plan
-
PO Lasix today
Entresto BID from tomorrow.
d/c tomorrow.
Assessment / Plan
Assessment / Plan
Assessment
Dysarthria secondary to dyspnea
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
Permanent atrial fibrillation s/p Watchman device
BPH
Ascending aortic aneurysm 4.6-4.7 cm
Hypernatremia
Conditions present prior to admission
Hypercholesterolemia
Hypertension
Hypothyroidism
Prior CVA
Plan
#Dysarthria secondary to dyspnea
-Continue aspirin plus statin
-MRI 06/02/2024 with no evidence of an acute infarct
-Head CT unremarkable.
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
-EKG on presentation with new LBBB
-Improved on IV lasix. d/c'd yesterday. Will transition to oral LASIX 40MG today.
-Monitor Cre with diuresis
-Weight down by 9 pounds from presentation
-Echo 06/03 EF 25%, severe MR
-Cardiology input appreciated.
-Continue metoprolol, Farxiga. Entresto BID. D/C losartan.
#Permanent atrial fibrillation status post Watchman device
-Continue metoprolol for rate control.
-Hx of Watchman 2020.
# Hypernatremia
Watch with diuresis
#BPH
-Continue tamsulosin
#HTN
Continue Home medications ARB, BB.
#Ascending aortic aneurysm 4.6-4.7 cm:
-Outpatient evaluation
CODE STATUS; full code
DVT prophylaxis-Lovenox
Anticipated Discharge: Within 24 hours
Subjective/Interval History
-
Date of Service: June 03, 2024
Objective Data
-
Labs:
Laboratory Results
06/03/24
07:26
Sodium Pending
Potassium Pending
Chloride Pending
Carbon Dioxide Pending
BUN Pending
Creatinine Pending
Glucose Pending
Calcium Pending
Vital Signs:
Vital Signs
Temp Pulse Resp BP Pulse Ox
97.6 F 79 18 132/104 96
06/03/24 07:30 06/03/24 07:30 06/03/24 07:30 06/03/24 07:30 06/03/24 07:30
I&O
06/02/24 06/03/24 06/04/24
06:59 06:59 06:59
Intake Total 860 / 860 840 / 840
Output Total 3225 / 3225 400 / 400
Balance -2365 / -2365 440 / 440
Review of Systems
-
All other systems: Reviewed and negative (except as documented)
Physical Exam
-
General: No Apparent Distress and Comfortable
Respiratory: Clear to Auscultation
Cardiac: S1/S2 and Irregular Rhythm
GI: Soft, Nontender and Nondistended
Musculoskeletal: Other (1+ pedal edema B/L)
Neuro: Awake and Alert
[2024-06-03] MEDS: ASPIR LOW (ENTERIC COATED) 81 MG PO (09:00)
[2024-06-03] MEDS: VITAMIN D3 (cholecalciferol) 50 MCG PO (09:00)
[2024-06-03] MEDS: TOPROL XL 50 MG PO (09:00)
[2024-06-03] MEDS: ZOLOFT 25 MG PO (09:00)
[2024-06-03] MEDS: DESENEX/MITRAZOL/ZEASORB 1 APPLIC TOPICAL ×2 (09:00→20:03)
[2024-06-03] MEDS: LOVENOX 40 MG SC ×2 (09:00→20:03)
[2024-06-03] MEDS: FARXIGA 10 MG PO (09:00)
--- NOTE | 2024-06-03 09:05 | W.PN.CD ---
Addendum entered and electronically signed by Wyatt Gonzalez MD 06/03/24 10:14:
Echo shows EF 25%, severe MR; which is similar to prior.
I will stop losartan and transition to entresto 49/51mg bid tomorrow.
I will resume lasix 40mg daily.
He follows with [facility], and will need repeat BMP in 10-14 days.
Original Note:
Today's Communication / Plan
-
echo pending
based on BMP results, will advise on transition to entresto and PO lasix dosing
Impression / Plan
-
Jbycs-eg-dyhyhsq HF: h/o HFrEF
-improved s/p IV lasix
-on Farxiga, ARB, BB
-echo pending
-based on BMP results, will advise on transition to entresto and PO lasix dosing
AFIB, type unknown, but suspect permanent:
-continue metoprolol, dose increased this admit for better rate control: Toprol XL 50mg daily
-per report, history of watchman
LBBB: unclear chronicity
-stable on tele
Valvular HD
-severe MR and moderate TR by record
-follow up echo
HTN: - stable
- continue current regimenj
Ascending aortic aneurysm 4.6-4.7 cm:
-needs to follow-up as OP on this with his physician
-BP and HR control
Cards: Dr. Sim
Physical Exam
Vital Signs/Labs
Vital Signs
Temp Pulse Resp BP Pulse Ox
97.6 F 70 18 132/67 96
06/03/24 07:30 06/03/24 07:30 06/03/24 07:30 06/03/24 07:30 06/03/24 07:30
06/02/24 06/03/24 06/04/24
06:59 06:59 06:59
Actual Weight 131.315 kg
06/01/24 04:52
PT 15.0 Sec (11.4-14.6) H 05/31/24 22:23
INR 1.19 05/31/24 22:23
Magnesium 2.1 mg/dl (1.6-2.3) 06/02/24 04:47
Triglycerides 70 mg/dl (10-149) 06/01/24 04:52
LDL Cholesterol, Calc 27 mg/dl 06/01/24 04:52
VLDL Cholesterol, Calc 14 mg/dl (0-30) 06/01/24 04:52
HDL Cholesterol 40 mg/dl 06/01/24 04:52
TSH 1.36 uIU/ml (0.47-4.68) 06/01/24 04:52
05/31/24
22:23
Bvz-F-Qpuzqnxrnkl Pept 5500
LAB Results
05/31/24 06/01/24
22:23 04:52
Troponin I < 0.012 0.012
Physical Exam
Constitutional: Comfortable
EENT: Moist mucous membranes
Cardiovascular: JVD pressure is normal, Rhythm/rate is irregular, Pedal edema present and Systolic murmur present
Respiratory: Respiratory effort normal and Lungs clear to auscul.
GI: Soft
Neuro/Psych: AO x 3
Data Reviewed
-
Date of Service: June 03, 2024
EKG: Other (Tele: Afib 80s-90s)
Labs: Labs Reviewed by me
[2024-06-03 09:36] LABS: Blood Urea Nitrogen 26 mg/dl (9-20); Calcium 8.9 mg/dl (8.4-10.2); Carbon Dioxide 32 mmol/L (22-30); Chloride 106 mmol/L (98-107); Estimated Creatinine Clearance 53 ml/min; Glucose 105 mg/dl (70-99); Potassium 3.9 mmol/L (3.5-5.1); Sodium 147 mmol/L (135-145); eGFR 49.25
[2024-06-03] MEDS: LASIX 40 MG PO (12:00)
--- NOTE | 2024-06-03 16:08 | PTCARENOTE ---
1600: Report given to 3W RN. Patient transferred to 3W via wheelchair by RN. Patient belongings transferred with patient.
[2024-06-03] MEDS: CRESTOR 10 MG PO (17:14)
[2024-06-03] MEDS: FLOMAX 0.8 MG PO (21:46)
[2024-06-04 03:05] VITALS: BP 101/63
[2024-06-04 06:00] VITALS: BMI 41.5
[2024-06-04] MEDS: SYNTHROID 75 MCG PO (06:29)
--- NOTE | 2024-06-04 07:31 | W.PN.HOSP.TC ---
Addendum entered and electronically signed by Carlos Wilburn MD, Resident 06/04/24 11:59:
Spoke to patient's son Tej. Informed him of his dad's improved condition. plan for d/c today
Original Note:
Today's Communication/Plan
-
replete K
d/c home today
Assessment / Plan
Assessment / Plan
Assessment
Dysarthria secondary to dyspnea
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
Permanent atrial fibrillation s/p Watchman device
BPH
Ascending aortic aneurysm 4.6-4.7 cm
Hypernatremia
Conditions present prior to admission
Hypercholesterolemia
Hypertension
Hypothyroidism
Prior CVA
Plan
#Dysarthria secondary to dyspnea
-Continue aspirin plus statin
-MRI 06/02/2024 with no evidence of an acute infarct
-Head CT unremarkable.
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
-EKG on presentation with new LBBB
- transitioned to oral LASIX 40MG 06/03.
-cre stable at 1.4 baseline level.
-Echo 06/03 EF 25%, severe MR
-Cardiology input appreciated.
-Continue metoprolol, Farxiga. Entresto BID. D/C losartan.
#Permanent atrial fibrillation status post Watchman device
-Continue metoprolol for rate control.
-Hx of Watchman 2020.
# Hypernatremia
Watch with diuresis
#Hypokalemia.
K 3.5 today. Replete befor DC
#BPH
-Continue tamsulosin
#HTN
Continue Home medications ARB, BB.
#Ascending aortic aneurysm 4.6-4.7 cm:
-Outpatient evaluation
CODE STATUS; full code
DVT prophylaxis-Lovenox
Anticipated Discharge: Today
Subjective/Interval History
-
patient examined at bedside. Vital signs stable. Denies acute complaint. Denies shortness of breath.
Objective Data
-
Labs:
Laboratory Results
06/04/24
06:00
WBC Pending
Hgb Pending
Hct Pending
Plt Count Pending
Sodium Pending
Potassium Pending
Chloride Pending
Carbon Dioxide Pending
BUN Pending
Creatinine Pending
Glucose Pending
Calcium Pending
Vital Signs:
Vital Signs
Temp Pulse Resp BP Pulse Ox
97.7 F 84 16 101/63 94
06/04/24 03:05 06/04/24 03:05 06/04/24 03:05 06/04/24 03:05 06/04/24 03:05
I&O
06/03/24 06/04/24 06/05/24
06:59 06:59 06:59
Intake Total 840 / 840 840 / 840
Output Total 400 / 400
Balance 440 / 440 840 / 840
Review of Systems
-
All other systems: Reviewed and negative (except as documented)
Physical Exam
-
General: No Apparent Distress
HEENT: Normocephalic
Respiratory: Clear to Auscultation
Cardiac: S1/S2 and Irregular Rhythm
GI: Soft, Nontender and Nondistended
Neuro: AO x 3
[2024-06-04] MEDS: VITAMIN D3 (cholecalciferol) 50 MCG PO (07:42)
[2024-06-04] MEDS: ENTRESTO 49 MG/51 MG 1 TAB PO (07:42)
[2024-06-04] MEDS: FARXIGA 10 MG PO (07:42)
[2024-06-04] MEDS: LASIX 40 MG PO (07:42)
[2024-06-04] MEDS: ASPIR LOW (ENTERIC COATED) 81 MG PO (07:42)
[2024-06-04] MEDS: DESENEX/MITRAZOL/ZEASORB 1 APPLIC TOPICAL (07:43)
[2024-06-04] MEDS: TOPROL XL 50 MG PO (07:43)
[2024-06-04] MEDS: LOVENOX 40 MG SC (07:43)
[2024-06-04] MEDS: ZOLOFT 25 MG PO (07:43)
[2024-06-04 07:45] VITALS: BP 117/72
[2024-06-04 08:24] LABS: Hematocrit 38.7 % (39.0-52.0); Hemoglobin 12.2 g/dL (13.0-18.0); Mean Corp Hgb Conc. 31.5 g/dL (33.0-37.0); Mean Corpuscular Hgb 26.8 pg (27.0-31.0); Mean Corpuscular Volume 84.9 fL (80.0-94.0); Mean Platelet Volume 10.3 fL (7.4-10.4); Platelet Count 274 10^3/uL (130-400); Red Blood Cell Count 4.56 10^6/uL (4.70-6.10); Red Cell Dist. Width 16.8 % (11.5-14.5); White Blood Cell Count 11.7 10^3/uL (4.8-10.8)
[2024-06-04 08:39] LABS: Blood Urea Nitrogen 29 mg/dl (9-20); Calcium 8.6 mg/dl (8.4-10.2); Carbon Dioxide 32 mmol/L (22-30); Chloride 104 mmol/L (98-107); Estimated Creatinine Clearance 53 ml/min; Glucose 161 mg/dl (70-99); Potassium 3.5 mmol/L (3.5-5.1); Sodium 144 mmol/L (135-145); eGFR 49.25
[2024-06-04] MEDS: KCL 40 MEQ PO (10:06)
[2024-06-04 11:42] VITALS: BP 105/69
--- NOTE | 2024-06-04 12:02 | W.DCSUMMARY ---
Documented by User: Carlos Wilburn MD, Resident 06/04/24 16:40
Discharge Summary
Discharge Data
Date of Admission: 06/01/24
Date of Discharge: 06/04/24
-
Pending Results: No
Hospital Course
This is an 84-year-old male who has a past medical history significant for atrial fibrillation status post Watchman procedure, hypothyroidism, hypertension, CHF, prior CVA, BPH who presented to ED for symptoms of worsening shortness of breath,
and found to have slurred speech. Patient was at the report that he was wheezing, increasing work of breath and at home. Patient did admit that his speech was indeed slurred, and he has been experiencing dyspnea on exertion over the last 1 to 2
weeks. On arrival in the emergency department the patient was normotensive with a blood pressure of 140/96 pulse was 111 and irregular he was breathing at a rate of 20. He was satting at 95% on 2 L. His ECG showed atrial fibrillation with rate of
91 and a left bundle branch block which was not present in 2015. His troponin was 0.012. BNP was 5500. He had a white count of 13,000 with otherwise unremarkable hemoglobin and platelet counts. serum sodium was 152 and the rest of the
electrolytes were unremarkable. Creatinine was 1.5. Evaluation with a head CT in the ED, showed no acute intracranial abnormalities. A follow-up MRI brain was ordered with no evidence of acute infarct. Neurology was consulted, it was determined
that his dysarthria might have been secondary to dyspnea. He was continued on aspirin, Crestor.
On presentation to the ER, a chest x-ray was ordered which showed cardiomegaly with small bilateral pleural effusions and mild interstitial edema. He had a CT PE which showed no pulmonary embolism. Patient was initially started on IV diuresis i40
mg twice daily. Cardiology was consulted and his Toprol XL dosage was increased to 50 mg daily. Echocardiogram was ordered which showed EF 25%, severe MR which was similar to prior echo. His losartan was discontinued and he was transition to
Entresto 49/51 mg twice daily. He was eventually weaned off O2 while in-house, and transition to back to his oral Lasix 40 mg daily. Home O2 assessment was done before discharge, and respiratory does not qualify for home O2. Patient was
discharged today with plans to recheck his BMP in 5 days. He will be continued on his home Lasix dosage, Entresto, beta-jelani and SGLT2 inhibitor for GDMT of his HFrEF with plans to follow-up with his automotive specialty technician in a week.
Vitals on the day of discharge; blood pressure 105/69, pulse 88, respiratory rate 18, temperature 97.5, O2 sats 94% on room air.
Physical examination on day of discharge; patient was seen sitting comfortable in no acute distress. His lungs are clear to auscultation. S1-S2 present. Abdomen soft nontender, nondistended with normal bowel sounds.
Discharge Plan
-
Patient Disposition: Home (Routine Discharge)
Discharge Diagnosis/Procedures: Dysarthria secondary to dyspnea
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
Permanent atrial fibrillation s/p Watchman device
BPH
Ascending aortic aneurysm 4.6-4.7 cm
Hypernatremia
Hypertension
Hypercholesterolemia
Hypothyroidism
Condition: Fair
Diet: 2 Gram Sodium and Restrict fluids to 48 oz
Activity: As tolerated
Blood Work: bmp in 5 days
Specialty Instructions: Weigh Daily- Call MD for wt gain/loss 3 lbs overnight/5 lbs in 1 week
Activity Restrictions/Additional Instructions:
weight loss recommended. Elastic stocking or TARSHA bandages to the legs during day time
Instructions: *PCP/Other Social Service Manager Heart Failure Instructions
Referrals:
Pan Zayas MD [Active] - in two to three weeks (sleep study)
Nabil Sim MD [Non-Admitting Privileges] - in one week
Darwin Lira DO [Family Provider] - in less than 1 week
Prescriptions:
New
furosemide 40 mg Tablet
40 mg PO DAILY Qty: 30 0RF
metoprolol succinate 50 mg Tablet Extended Release 24 Hr
50 mg PO DAILY Qty: 30 0RF
Entresto 49-51 mg Tablet
1 tab PO BID Qty: 60 0RF
Continued
rosuvastatin 10 MG tablet
10 mg PO QPM
amlodipine 5 mg Tablet
5 mg PO DAILY
levothyroxine 75 mcg Tablet
75 mcg PO DAILY
tamsulosin 0.4 mg Capsule
0.8 mg PO HS
sertraline 25 mg Tablet
25 mg PO DAILY
aspirin 81 mg Tablet
81 mg PO DAILY
omega-3 fatty acids-vitamin E 1,000 mg Capsule
1 cap PO DAILY
cholecalciferol (vitamin D3) 50 mcg (2,000 unit) Tablet
50 mcg PO DAILY
dapagliflozin propanediol [Farxiga] 10 mg Tablet
10 mg PO DAILY
Discontinued
losartan 50 MG tablet
100 mg PO BID
furosemide 40 mg Tablet
40 mg PO DAILY
metoprolol succinate 25 mg Tablet Extended Release 24 Hr
25 mg PO DAILY
Discharge Orders:
Discharge Patient (As Directed); Ordered 06/04/24
Ordered By: Carlos Wilburn
Discharge Date and Time
Discharge Date/Time: 06/04/24 13:29
Print Language: CENTRAL AFRICAN

Documented by User: Layo Tenorio DO 06/05/24 10:23
Discharge Summary
Discharge Data
Date of Admission: 06/01/24
Date of Discharge: 06/05/24
Discharge Plan
-
Patient Disposition: Home (Routine Discharge)
Discharge Diagnosis/Procedures: Dysarthria secondary to dyspnea
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
Permanent atrial fibrillation s/p Watchman device
BPH
Ascending aortic aneurysm 4.6-4.7 cm
Hypernatremia
Hypertension
Hypercholesterolemia
Hypothyroidism
Condition: Fair
Diet: 2 Gram Sodium and Restrict fluids to 48 oz
Activity: As tolerated
Blood Work: bmp in 5 days
Specialty Instructions: Weigh Daily- Call MD for wt gain/loss 3 lbs overnight/5 lbs in 1 week
Activity Restrictions/Additional Instructions:
weight loss recommended. Elastic stocking or TARSHA bandages to the legs during day time
Instructions: *PCP/Other Social Service Manager Heart Failure Instructions
Referrals:
Pan Zayas MD [Active] - in two to three weeks (sleep study)
Nabil Sim MD [Non-Admitting Privileges] - in one week
Darwin Lira DO [Family Provider] - in less than 1 week
Prescriptions:
New
furosemide 40 mg Tablet
40 mg PO DAILY Qty: 30 0RF
metoprolol succinate 50 mg Tablet Extended Release 24 Hr
50 mg PO DAILY Qty: 30 0RF
Entresto 49-51 mg Tablet
1 tab PO BID Qty: 60 0RF
Continued
rosuvastatin 10 MG tablet
10 mg PO QPM
amlodipine 5 mg Tablet
5 mg PO DAILY
levothyroxine 75 mcg Tablet
75 mcg PO DAILY
tamsulosin 0.4 mg Capsule
0.8 mg PO HS
sertraline 25 mg Tablet
25 mg PO DAILY
aspirin 81 mg Tablet
81 mg PO DAILY
omega-3 fatty acids-vitamin E 1,000 mg Capsule
1 cap PO DAILY
cholecalciferol (vitamin D3) 50 mcg (2,000 unit) Tablet
50 mcg PO DAILY
dapagliflozin propanediol [Farxiga] 10 mg Tablet
10 mg PO DAILY
Discontinued
losartan 50 MG tablet
100 mg PO BID
furosemide 40 mg Tablet
40 mg PO DAILY
metoprolol succinate 25 mg Tablet Extended Release 24 Hr
25 mg PO DAILY
Discharge Orders:
Discharge Patient (As Directed); Ordered 06/04/24
Ordered By: Carlos Wilburn
Discharge Date and Time
Discharge Date/Time: 06/04/24 13:29
Print Language: CENTRAL AFRICAN
--- NOTE | 2024-06-04 12:51 | CM ---
Reviewed chart, patient medically cleared for discharge. Updated VN liason. VN will be out to see patient. Reviewed IMM with patient. He is agreeable to discharge. IMM on chart.
Plan: Case management will continue to follow and assist with discharge planning. Home with VN.
--- NOTE | 2024-06-05 09:54 | W.HF.CON ---
Heart Failure
- LV Function
Left ventricular function study result: LV Ejection fraction </= 35%
Ejection Fraction Percentage: 25
- ARNI
Patient already on ARNI: Yes
- ACEI/ARB
Patient already on ACEI/ARB: No
Heart Failure ACEI/ARB Not Indicated: Patient ordered/on ARNI
- Beta Dread
Patient already on Evidence Based Beta Dread: Yes
- Mineralocorticord Receptor Antagonist
Patient already on MRA: No
Heart Failure MRA Contraindication: Hypotension
- SGLT-2 Inhibitor
Patient already on SGLT-2 Inhibitor: Yes
- Afib Anticoagulation
Patient already on Anticoagulation for Afib: No
Heart Failure Afib Anticoagulation Contraindication: Patient Refusal (watchman placed in 2020)
- NYHA CHF Classification
NYHA CHF Classification Level: Class III - Symptoms w/ min exertion, interferes w/ nml daily activity
- ACC/AHA Stage
ACC/AHA Stage: Stage C: Symptomatic Heart Failure
== END 2024-06-04 13:29 | disposition home health service (06) | DRG 291 ==
LOC: 3 WEST ACU 01:25
PROVIDERS: Nurse Practitioner; Student in an Organized Health Care Education/Training Program; ADMITTING PHYSICIAN Internal Medicine; ATTENDING PHYSICIAN Internal Medicine; EMERGENCY PHYSICIAN Student in an Organized Health Care Education/Training Program; FAMILY PHYSICIAN Family Medicine; OTHER PHYSICIAN Internal Medicine Cardiovascular Disease; OTHER PHYSICIAN Psychiatry & Neurology Neurology
DX: I13.0 Hypertensive heart and chronic kidney disease with heart failure and stage 1 through stage 4 chronic kidney disease, or unspecified chronic kidney disease (principal); I50.23 Acute on chronic systolic (congestive) heart failure; E87.0 Hyperosmolality and hypernatremia; G45.0 Vertebro-basilar artery syndrome; I48.21 Permanent atrial fibrillation; Z68.41 Body mass index [BMI] 40.0-44.9, adult; I71.21 Aneurysm of the ascending aorta, without rupture; E03.9 Hypothyroidism, unspecified; N18.30 Chronic kidney disease, stage 3 unspecified; E66.9 Obesity, unspecified; I42.8 Other cardiomyopathies; E78.00 Pure hypercholesterolemia, unspecified; I44.7 Left bundle-branch block, unspecified; N40.0 Benign prostatic hyperplasia without lower urinary tract symptoms; G47.33 Obstructive sleep apnea (adult) (pediatric); R06.02 Shortness of breath; R06.09 Other forms of dyspnea; R06.2 Wheezing; R47.1 Dysarthria and anarthria; R47.81 Slurred speech; Z91.119 Patient's noncompliance with dietary regimen due to unspecified reason; Z79.82 Long term (current) use of aspirin; Z79.890 Hormone replacement therapy; Z79.899 Other long term (current) drug therapy; Z95.818 Presence of other cardiac implants and grafts; Z87.19 Personal history of other diseases of the digestive system; Z86.73 Personal history of transient ischemic attack (TIA), and cerebral infarction without residual deficits; Z82.49 Family history of ischemic heart disease and other diseases of the circulatory system
CPT/HCPCS: 70450; 70551; 71046; 71275; 80048; 80053; 80061; 83735; 83880; 84443; 84484; 85025; 85027; 85610; 92610; 93005; 93306; 94640; 96374; 97116; 97163; 97167; 97530; 97535; 99285; Q9950; Q9967